=== PATIENT | male | born 1980 | race Caucasian/White ===

== ENCOUNTER 2016-12-30 13:51 | Observation (INO) | payer BC ==
[~2016-12-30] VITALS: Ht 175.3 cm; Wt 89.0 kg
[2016-12-30] MEDS ORDERED: SODIUM CHLORIDE 0.9% 1000ML 1,000 ML IV STA (14:17)
[2016-12-30] MEDS ORDERED: ASPIRIN 81 MG CHEW PO STA (14:17)
--- NOTE | 2016-12-30 14:28 | EMERGENCY ROOM VISIT NOTE ---
History Report prepared by Fernandez: Mili Oquendo Under the Supervision of: Dr. Reanna Pike M.D. First contact with patient: 14:07 Chief Complaint: NEURO SYMPTOMS Stated Complaint: BLURRINESS IN RIGHT EYE,HEADACHE,TROUBLE TALKING History of Present Illness The patient is a 36 year old male who presents to the Emergency Room with complaints of resolved neurologic symptoms beginning 3 hours ago. The patient states that he was at work today when it suddenly felt like a bright eye was flashed and his eye and he began having pain. He reports that he began to have blurry vision in his right eye and it was difficult to see. He notes that after 15 minutes he began to have a headache behind his right eye that progressed across his entire head and lasted about 2 hours. The patient states that he had difficulty focusing and concentrating on simple day-to-day tasks and they were much more difficult to complete. He reports that he tried to call his and let her know what was going on but he could not say what he wanted to and had some difficulty speaking. He reports that he had 30 minutes of the word salad and he denies any slurred speech during that time. The patient complains of some right neck soreness and notes that he was able to drive with extreme focus only. He denies any slurred speech, weakness of the arms or legs, difficulty walking, weight loss, frequent headaches, vomiting, leg swelling, and chest pain. He states that he does exercise regularly and sometimes get short of breath. The patient explains that his shortness of breath is only present with high levels of exertion. He notes that he also sometimes feel his heart beating irregularly when he is working out and when he has caffeine. He reports that 1 year ago he had similar symptoms with a headache and right eye blurriness that resolved after a shorter period of time than today. The patient rates his pain as a 4/10 in severity and states that earlier it was an 8/10. He states that his grandfather from heart attack in his 70s but he has no other cardiac history in his family. Source of History: patient Onset: 3 hours ago Position: other (neurological) Symptom Intensity: 4/10 Timing: resolved Associated Symptoms: + headache, No chest pain, No vomiting, No weakness Note: Pt complains of eye blurriness, eye pain, and difficulty speaking. He denies any slurred speech, difficulty walking, weight loss, frequent headaches, leg swelling. Review of Systems See HPI for pertinent positives & negatives. A total of 10 systems reviewed and were otherwise negative. Past Medical & Surgical Medical Problems: (1) Blurred vision (2) Headache (3) No significant past medical history Surgical Problems: (1) H/O inguinal hernia repair (2) History of vasectomy Family History FH: heart attack Social History Smoking Status: Never Smoker Marital Status: Housing Status: lives with significant other Occupation Status: employed Current/Historical Medications No Active Prescriptions or Reported Meds Allergies Coded Allergies: No Known Allergies (Unverified , 12/30/16) Physical Exam Vital Signs Date Time Temp Pulse Resp B/P (MAP) Pulse Ox O2 Delivery O2 Flow Rate FiO2 12/30/16 17:00 76 16 97 Room Air 12/30/16 15:06 90 16 153/92 94 Room Air 12/30/16 14:20 84 12/30/16 13:53 36.6 85 16 164/107 98 Room Air Physical Exam Vital signs reviewed. General: Well-appearing male, in no significant distress. HEENT: No scleral icterus, PERRLA, neck supple. Atraumatic. Cardiovascular: Regular rate and rhythm, no extra sounds. Pulmonary: Clear to auscultation bilaterally, normal work of breathing. Abdomen: Soft, nontender, nondistended, positive bowel sounds. Musculoskeletal: Atraumatic, no peripheral edema. Neurologic: Patient awake alert and oriented x 3, full strength in all 4 extremities. Cranial nerves 2 through 12 grossly intact. Skin: Warm, dry, no rash Medical Decision & Procedures ER Provider Diagnostic Interpretation: Radiology results as stated below per my review and radiologist interpretation: HEAD WITHOUT CONTRAST (CT) FINDINGS: No acute intracranial hemorrhage, midline shift, mass, large territorial ischemia or abnormal extra-axial collection. Focal 6 x 4 mm area of low attenuation within the region of the left lentiform nucleus suggest prominent perivascular space. The calvarium is intact. The paranasal sinuses, mastoid air cells, and middle ear cavities are clear. IMPRESSION: No acute intracranial abnormality. No intracranial hemorrhage or territorial ischemia. The above report was generated using voice recognition software. It may contain grammatical, syntax or spelling errors. Electronically signed by: Fritz Hartley M.D. 12/30/2016 2:43 PM Dictated Date/Time: 12/30/2016 2:41 PM CHEST ONE VIEW PORTABLE FINDINGS: Lung volumes are normal. Lungs are clear. No pneumothorax or pleural effusion is present. Cardiac size is normal. Mediastinal contours are normal. There is no evidence of pulmonary edema. IMPRESSION: No acute cardiopulmonary findings. Electronically signed by: Nasir Lee M.D. 12/30/2016 3:01 PM Dictated Date/Time: 12/30/2016 3:01 PM Laboratory Results Test 12/30/16 14:05 12/30/16 14:26 Estimated Average Glucose 105 mg/dl Hemoglobin A1c 5.3 % (4.5-5.6) Magnesium Level 2.1 mg/dl (1.8-2.4) Total Bilirubin 1.4 mg/dl (0.2-1) Direct Bilirubin 0.2 mg/dl (0-0.2) Aspartate Amino Transf (AST/SGOT) 25 U/L (15-37) Alanine Aminotransferase (ALT/SGPT) 48 U/L (12-78) Alkaline Phosphatase 101 U/L (45-117) Total Creatine Kinase 144 U/L (39-308) Creatine Kinase MB 1.0 ng/ml (0.5-3.6) Creatine Kinase MB Ratio 0.7 (0-3.0) Total Protein 7.7 gm/dl (6.4-8.2) Albumin 4.5 gm/dl (3.4-5.0) Thyroid Stimulating Hormone (TSH) 2.400 uIu/ml (0.300-4.500) Bedside Troponin I < 0.030 ng/ml (0-0.045) Laboratory results per my review. Medications Administered Medications (Trade) Dose Ordered Sig/Trisha Route Start Time Stop Time Status Last Admin Dose Admin Aspirin (Aspirin Chew) 324 mg NOW STAT PO 12/30/16 14:17 12/30/16 14:20 DC 12/30/16 15:01 324 MG Sodium Chloride 1,000 ml @ 150 mls/hr [id number] STAT IV 12/30/16 14:17 12/30/16 18:58 DC 12/30/16 15:01 150 MLS/HR ECG Indication: altered mental status Rate (beats per minute): 69 Rhythm: normal sinus Findings: no acute ischemic change, no ectopy ED Course 1408: Past medical records reviewed. The patient was evaluated in room B9. A complete history and physical examination was performed. 1417: Sodium Chloride 1000 ml @ 150 mls/hr IV, Aspirin Chew 324mg PO. 1641: I reevaluated and updated the patient. 1648: I reviewed the patient's case with Ann-Marie Williamson PA-C of [facility]. She will evaluate the patient for further management. 1657: Upon reevaluation, the patient is resting comfortably. I discussed laboratory and radiographic results with the patient. He verbalized agreement of the treatment plan. I spoke with Ann-Marie Williamson PA-C of the [facility] Hospitalist Service. The patient will be evaluated for further management and care. Medical Decision Differential diagnosis: Intracranial hemorrhage, stroke, intracranial mass, migraine headache, tension headache, sinusitis, meningitis This patient was evaluated and appeared to be in no significant distress. IV access was obtained and laboratory work was drawn. The patient was complaining of a low-grade headache at this point, visual changes had subsided. CT scan of the head was performed and is negative. Patient did receive some oral aspirin secondary to complaints of periodic chest pain, particularly with exertion. EKG reveals a sinus rhythm without acute ischemia. Patient's presentation is concerning for both the TIA like episode given his age. It does seem to be in line with a migraine headache however the speech changes are concerning. Patient's neurologic exam is completely intact on my assessment. The periodic shortness of breath and chest pain with palpitations is unclear. While he is likely having periodic PVCs, further cardiac evaluation may be warranted in light of the patient's headache and neurologic symptoms today. I did explain my findings to the patient. He agrees with the plan for hospitalist evaluation. Medication Reconcilliation Current Medication List: was personally reviewed by me Blood Pressure Screening Patient's blood pressure: Elevated blood pressure Blood pressure disposition: Elevated BP felt to be situational Consults Time Called: 1640 Consulting Physician: Ann-Marie Williamson PA-C - [facility] Returned Call: 1648 I reviewed the patient's case with Ann-Marie Williamson PA-C of [facility]. She will evaluate the patient for further management. Impression Primary Impression: TIA (transient ischemic attack) Additional Impression: Exertional chest pain Scribe Attestation The scribe's documentation has been prepared under my direction and personally reviewed by me in its entirety. I confirm that the note above accurately reflects all work, treatment, procedures, and medical decision making performed by me. Departure Information Dispostion Being Evaluated By Hospitalist Prescriptions No Active Prescriptions or Reported Meds Referrals Clarence Alvarez D.O. (PCP) Patient Instructions My [facility] Problem Qualifiers
[2016-12-30 14:30] LABS: BASO % 0.4 %; BASO ABS # 0.03 K/uL (0-0.2); COMPLETE YES; EOS % 0.6 %; HEMATOCRIT 48.2 % (42-52); IG% 0.1 %; LYMPH ABS # 2.87 K/uL (1.2-3.4); MEAN CELL VOLUME 88.4 fL (80-100); MEAN CORPUSCULAR HEMOGLOBIN 30.3 pg (25-34); MEAN CORPUSCULAR HGB CONC 34.2 g/dl (32-36); MEAN PLATELET VOLUME 11.2 fL (7.4-10.4); MONO % 8.1 %; NEUT % 50.8 %; PLATELET COUNT 188 K/uL (130-400); RED BLOOD COUNT 5.45 M/uL (4.7-6.1); WHITE BLOOD COUNT 7.18 K/uL (4.8-10.8)
--- NOTE | 2016-12-30 14:45 | DIAGNOSTIC IMAGING REPORT ---
HEAD WITHOUT CONTRAST (CT) CLINICAL HISTORY: 36 years-old Male with acute headache, difficulties speaking and blurred vision TECHNIQUE: Multiple axial CT images of the head were obtained without contrast. A dose lowering technique was utilized adhering to the principles of ALARA. CT DOSE: 537.48 mGy.cm COMPARISON: None. FINDINGS: No acute intracranial hemorrhage, midline shift, mass, large territorial ischemia or abnormal extra-axial collection. Focal 6 x 4 mm area of low attenuation within the region of the left lentiform nucleus suggest prominent perivascular space. The calvarium is intact. The paranasal sinuses, mastoid air cells, and middle ear cavities are clear. IMPRESSION: No acute intracranial abnormality. No intracranial hemorrhage or territorial ischemia. The above report was generated using voice recognition software. It may contain grammatical, syntax or spelling errors. Electronically signed by: Fritz Hartley M.D. 12/30/2016 2:43 PM Dictated Date/Time: 12/30/2016 2:41 PM
[2016-12-30 14:54] LABS: BUN/CREATININE RATIO 12.7 (10-20); CALCIUM 9.3 mg/dl (8.5-10.1); MAGNESIUM 2.1 mg/dl (1.8-2.4); POTASSIUM 3.8 mmol/L (3.5-5.1)
--- NOTE | 2016-12-30 15:02 | DIAGNOSTIC IMAGING REPORT ---
CHEST ONE VIEW PORTABLE CLINICAL HISTORY: Chest pain. Headache. Slurred speech. COMPARISON STUDY: No previous studies for comparison. FINDINGS: Lung volumes are normal. Lungs are clear. No pneumothorax or pleural effusion is present. Cardiac size is normal. Mediastinal contours are normal. There is no evidence of pulmonary edema. IMPRESSION: No acute cardiopulmonary findings. Electronically signed by: Nasir Lee M.D. 12/30/2016 3:01 PM Dictated Date/Time: 12/30/2016 3:01 PM
[2016-12-30 15:05] LABS: CKMB/CK RATIO 0.7 (0-3.0); THYROID STIMULATING HORMONE 2.4 uIu/ml (0.300-4.500)
[2016-12-30] MEDS ORDERED: ONDANSETRON INJ 2 MG/ML 2 ML VIAL IV PRN (17:45)
[2016-12-30] MEDS ORDERED: PHARMACIST DISCHARGE MED REC CONSULT PRN (17:45)
[2016-12-30] MEDS ORDERED: ACETAMINOPHEN 325 MG TAB PO PRN (17:45)
--- NOTE | 2016-12-30 18:23 | DIAGNOSTIC IMAGING REPORT ---
MRI OF THE BRAIN WITHOUT IV CONTRAST CLINICAL HISTORY: Headache. Trouble talking. Blurry vision. COMPARISON STUDY: CT of the brain dated 12/30/2016. TECHNIQUE: MRI of the brain was performed utilizing various T1 and T2-weighted sequences in the axial, sagittal, and coronal planes. IV contrast was not administered for this examination. FINDINGS: Brain parenchyma: There are 2 punctate foci of T2 signal abnormality within the right frontal white matter. This is of doubtful significance as an isolated finding. The brain parenchyma is otherwise normal in appearance. There is no hemorrhage or mass effect. There is no restricted diffusion to suggest acute ischemia. Mcghee-white matter differentiation is preserved. No extra-axial fluid collection is seen. The cerebellar tonsils are normal in configuration. Ventricles, sulci, and cisterns: Normal in configuration. Pituitary and sella: Unremarkable. Intracranial vasculature: Normal flow voids are maintained at the skull base. Orbits: The bony orbits are grossly intact. Orbital contents are normal in appearance. Sinuses and mastoids: Clear. Calvarium: Unremarkable. Cervical cord: Partially visualized cervical spinal cord is normal in morphology and signal intensity. IMPRESSION: No acute intracranial abnormality. Electronically signed by: Moe Valdez M.D. 12/30/2016 6:21 PM Dictated Date/Time: 12/30/2016 6:18 PM
[2016-12-30] MEDS ORDERED: IV FLUIDS COMPLETED PRN (18:30)
[2016-12-30 19:00] VITALS: BP 135/71; PULSE 73; TEMP 36.6; O2SAT 97
[2016-12-30 19:10] VITALS: O2SAT 97; Ht 175.3 cm; Wt 89.0 kg
[2016-12-30 19:28] LABS: INR 1.1 (0.9-1.1); PARTIAL THROMBOPLASTIN RATIO 1.2; PROTHROMBIN TIME (PATIENT) 11.3 SECONDS (9.0-12.0)
[2016-12-30] MEDS ORDERED: ENOXAPARIN 40 MG/0.4 ML SYR SC SCH (21:00)
[2016-12-30 21:11] VITALS: O2SAT 97
--- NOTE | 2016-12-30 21:51 | History and Physical ---
History & Physical Date & Time of Service: Dec 30, 2016 at 17:40 Chief Complaint: Blurriness In Right Eye,Headache,Trouble Talking Primary Care Physician: Clarence Alvarez D.O. History of Present Illness Source: patient, clinic records This is a 36 y/o male with no significant PMH who presents to the ED with blurry vision, HENDRIX, and speech difficulty. 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 The pain radiated around the back of his head to the left eye. He was having difficulty focusing. He called his and knew what he wanted to say, but was unable to get the correct words out. Was only able to say "I don't know" and "um". He reports associated mild nausea, lightheadedness and brief right neck soreness. Pt was brought to the ER by the pack room operator. Symptoms improved over a period of 2 hours- all are resolved except for headache which is now dull on the left sided rated 1-2/10. Pt ate his usual banana and V8 energy drink for breakfast. He reports a similar episode last year with vision change, speech difficulty, and HENDRIX which lasted 30 minutes. Pt was not evaluated for past episode. Pt also notes occasional L sided chest tightness (non-radiating) which occurs upon exertion (1 flight of stairs) with associated SUAREZ. He notes occasional palpitations at night associated w/ excess caffeine use or spicy food intake. Denies diaphoresis, fever, chills, URI symptoms, neck stiffness, weakness, numbness, balance difficulty, swallowing difficulty, syncope, vomiting, diarrhea, calf pain, edema. Pt denies hx of migraine, TIA, CVA, HTN, HL, DM, CAD, arrhythmia. Past Medical/Surgical History Medical Problems: (1) No significant past medical history Status: Chronic Surgical Problems: (1) H/O inguinal hernia repair Status: Chronic (2) History of vasectomy Status: Chronic Family History Diabetes mellitus GRANDFATHER GRANDMOTHER FH: heart attack GRANDFATHER ( of [place] in 70s) Hypertension GRANDFATHER GRANDMOTHER Social History Smoking Status: Never Smoker Alcohol Use: none Drug Use: none Marital Status: Housing status: lives with family Occupational Status: employed (mail delivery) Allergies Coded Allergies: No Known Allergies (Unverified , 12/30/16) Home Medications No Active Prescriptions or Reported Meds Review of Systems Ten systems reviewed and negative except as noted in HPI. Physical Exam Vital Signs Date Time Temp Pulse Resp B/P (MAP) Pulse Ox O2 Delivery O2 Flow Rate FiO2 12/30/16 17:00 76 16 97 Room Air 12/30/16 15:06 90 16 153/92 94 Room Air 12/30/16 14:20 84 12/30/16 13:53 36.6 85 16 164/107 98 Room Air General Appearance: WD/WN, no apparent distress Head: normocephalic, atraumatic Eyes: normal inspection, PERRL, EOMI, sclerae normal, + pertinent finding ( vision intact 20/20 bilaterally on pocket vision chart testing) ENT: hearing grossly normal, pharynx normal Neck: no adenopathy, trachea midline Respiratory/Chest: lungs clear, normal breath sounds, no respiratory distress Cardiovascular: regular rate, rhythm, no murmur Abdomen/GI: normal bowel sounds, non tender, soft Extremities/Musculoskelatal: normal inspection, no calf tenderness, no pedal edema 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 finger to nose intact bilaterally.) Skin: normal color, warm/dry Diagnostics Laboratory Results Results Past 24 Hours Test 12/30/16 14:05 12/30/16 14:26 Range/Units White Blood Count 7.18 4.8-10.8 K/uL Red Blood Count 5.45 4.7-6.1 M/uL Hemoglobin 16.5 14.0-18.0 g/dL Hematocrit 48.2 42-52 % Mean Corpuscular Volume 88.4 80-100 fL Mean Corpuscular Hemoglobin 30.3 25-34 pg Mean Corpuscular Hemoglobin Concent 34.2 32-36 g/dl Platelet Count 188 130-400 K/uL Mean Platelet Volume 11.2 7.4-10.4 fL Neutrophils (%) (Auto) 50.8 % Lymphocytes (%) (Auto) 40.0 % Monocytes (%) (Auto) 8.1 % Eosinophils (%) (Auto) 0.6 % Basophils (%) (Auto) 0.4 % Neutrophils # (Auto) 3.65 1.4-6.5 K/uL Lymphocytes # (Auto) 2.87 1.2-3.4 K/uL Monocytes # (Auto) 0.58 0.11-0.59 K/uL Eosinophils # (Auto) 0.04 0-0.5 K/uL Basophils # (Auto) 0.03 0-0.2 K/uL RDW Standard Deviation 42.0 36.4-46.3 fL RDW Coefficient of Variation 13.0 11.5-14.5 % Immature Granulocyte % (Auto) 0.1 % Immature Granulocyte # (Auto) 0.01 0.00-0.02 K/uL Sodium Level 141 136-145 mmol/L Potassium Level 3.8 3.5-5.1 mmol/L Chloride Level 107 98-107 mmol/L Carbon Dioxide Level 27 21-32 mmol/L Anion Gap 7.0 3-11 mmol/L Blood Urea Nitrogen 13 7-18 mg/dl Creatinine 1.00 0.60-1.40 mg/dl Est Creatinine Clear Calc Drug Dose 114.6 ml/min Estimated GFR () 111.7 Estimated GFR (Non- 96.4 BUN/Creatinine Ratio 12.7 10-20 Random Glucose 89 70-99 mg/dl Calcium Level 9.3 8.5-10.1 mg/dl Magnesium Level 2.1 1.8-2.4 mg/dl Total Bilirubin 1.4 0.2-1 mg/dl Direct Bilirubin 0.2 0-0.2 mg/dl Aspartate Amino Transf (AST/SGOT) 25 15-37 U/L Alanine Aminotransferase (ALT/SGPT) 48 12-78 U/L Alkaline Phosphatase 101 45-117 U/L Total Creatine Kinase 144 39-308 U/L Creatine Kinase MB 1.0 0.5-3.6 ng/ml Creatine Kinase MB Ratio 0.7 0-3.0 Total Protein 7.7 6.4-8.2 gm/dl Albumin 4.5 3.4-5.0 gm/dl Thyroid Stimulating Hormone (TSH) 2.400 0.300-4.500 uIu/ml Bedside Troponin I < 0.030 0-0.045 ng/ml Diagnostic Radiology HEAD WITHOUT CONTRAST (CT)- per radiology IMPRESSION: No acute intracranial abnormality. No intracranial hemorrhage or territorial ischemia. CHEST ONE VIEW PORTABLE- per radiology IMPRESSION: No acute cardiopulmonary findings. MRI OF THE BRAIN WITHOUT IV CONTRAST IMPRESSION: No acute intracranial abnormality. EKG NSR, nonspecific T wave abnormality in III, no ST changes Impression Assessment and Plan HEADACHE/ STROKE LIKE SYMPTOMS With R eye blurred vision, difficulty concentrating, and word finding difficulty - all resolved Likely secondary to migraine No risk factors for CVA CT head- negative; MRI brain- negative, echo-pending Reports of occasional palpitations- NSR on EKG; telemetry monitoring to r/o arrhythmia Neuro checks ELEVATED BP Resolved Likely situational No hx of hypertension EXERTIONAL CHEST PAIN Occurs occasionally with 1 flight of stairs No acute symptoms; no significant risk factors (no HTN, HL, or DM, nonsmoker, no FHx of premature CAD) EKG- nonspec T wave abnml in III, no ST changes Check echo Consider stress test as outpatient DVT PROPHYLAXIS Lovenox SQ FULL CODE DISPOSITION Observation to telemetry Follows with Dr. Clarence Alvarez for primary care Patient seen in collaboration with Dr. Matos. Please see his addendum. Attending Addendum Pt was seen and examined. Agreed with Ann-Marie BOWERS physical exam, assessment and plan. 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 He said that he had similar problem a year ago.Symptoms resolved now. Denies any chest pain, palpitation, dizziness, sob, weakness and numbness. General- No acute distress Head- atraumatic Eyes- PERRL, EOMI ENT- oropharynx clear Neck- supple, no JVD Lungs- clear to auscultation Heart- regular rhythm Abdomen- normal bowel sounds, soft Extremities- no pretibial edema, no calf tenderness Neuro- alert, oriented x 3; PERRL, EOMI; no facial palsy; no dysarthria; motor 5 /5 bilaterally Skin- warm & dry A/P STROKE LIKE SYMPTOMS ASSOCIATED WITH HEADACHE Likely secondary to migraine No focal neuro deficit on exam No risk factors for CVA CT head- negative; MRI brain- negative Check echo Continue monitor in tele Neuro check Lab, EKG, imaging reviewed Please refer to Ann-Marie PA-C documentation for other problems. Gumaro Matos MD VTE Prophylaxis VTE Risk Assessment Done? Y/N: Yes Risk Level: Moderate
[2016-12-30 23:33] VITALS: BP 116/74; PULSE 63; TEMP 36.3; O2SAT 97
[2016-12-31] VITALS (7 sets, daily range): BP systolic 102–131; BP diastolic 69–93; PULSE 57–72; TEMP 36.4–36.9; O2SAT 95–98
[2016-12-31 06:16] LABS: ESTIMATED AVERAGE GLUCOSE 105 mg/dl; HA1C FLAG Normal (Normal)
[2016-12-31 06:52] LABS: BASO % 0.3 %; BASO ABS # 0.02 K/uL (0-0.2); COMPLETE YES; EOS % 1.9 %; HEMATOCRIT 45.2 % (42-52); LYMPH % 37.8 %; LYMPH ABS # 2.35 K/uL (1.2-3.4); MEAN CELL VOLUME 88.1 fL (80-100); MEAN CORPUSCULAR HGB CONC 34.1 g/dl (32-36); MEAN PLATELET VOLUME 10.6 fL (7.4-10.4); MONO % 7.6 %; NEUT % 52.4 %; PLATELET COUNT 168 K/uL (130-400); RED BLOOD COUNT 5.13 M/uL (4.7-6.1); WHITE BLOOD COUNT 6.22 K/uL (4.8-10.8)
[2016-12-31 07:22] LABS: BUN/CREATININE RATIO 10.6 (10-20); CALCIUM 8.9 mg/dl (8.5-10.1); POTASSIUM 4.2 mmol/L (3.5-5.1)
[2016-12-31 07:25] LABS: CHOLESTEROL/HDL RATIO 4.6
[2016-12-31] MEDS ORDERED: ASPIRIN 81 MG ECTAB PO SCH (09:00)
--- NOTE | 2016-12-31 09:50 | ECHOCARDIOGRAM REPORT ---
*NOTICE TO RECEIVING LIBERTARIAN AGENCY This information is strictly Confidential and protected under [place] law. [place] law prohibits you from making any further disclosure of this information unless further disclosure is expressly permitted by the written consent of the person to whom it pertains or is authorized by law. A general authorization for the release of medical or other information is not sufficient for this purpose. Hospital accepts no responsibility if the information is made available to any other person, INCLUDING THE PATIENT. Interpretation Summary * Name: FORREST BRIAN Study Date: 12/31/2016 08:04 AM BP: 113/75 mmHg * Patient Location: .ED HR: 86 * : 1980 (M/d/yyyy) Gender: Male Height: 69 in * Age: 36 yrs Ethnicity: CA Weight: 203 lb * Ordering Physician: Ann-Marie Williamson * Referring Physician: Self, Referred * Performed By: Justin Tucker RCS * * Reason For Study: Stroke like symptoms, exertional Chest pain * BSA: 2.1 m2 * -- Conclusions -- * The left ventricle is normal in size. * There is normal left ventricular wall thickness. * The left ventricular wall motion is normal. * Left ventricular systolic function is normal. * Ejection Fraction = 60-65%. * No valvular abnormalities. * The interatrial septum is intact with no evidence for an atrial septal defect. * Injection of contrast documented no interatrial shunt. Procedure Details * A saline contrast injection was performed to assess for cardiac shunting. * The injection was performed through an intravenous line in the right arm. * The attending nurse who injected the saline contrast was Kelsi Oliveira RN. * A total of 18 cc of agitated saline was given. * A complete two-dimensional transthoracic echocardiogram was performed (2D, M-mode, Doppler and color flow Doppler). Left Ventricle * The left ventricle is normal in size. * There is normal left ventricular wall thickness. * Ejection Fraction = 60-65%. * Left ventricular systolic function is normal. * The left ventricular wall motion is normal. Right Ventricle * The right ventricle is normal in size and function. Atria * The left atrial size is normal. * Right atrial size is normal. * The interatrial septum is intact with no evidence for an atrial septal defect. * Injection of contrast documented no interatrial shunt. Mitral Valve * The mitral valve is normal. * There is no mitral valve stenosis. * There is trace mitral regurgitation. Tricuspid Valve * The tricuspid valve is normal. * There is no tricuspid stenosis. * There is trace tricuspid regurgitation. Aortic Valve * The aortic valve is trileaflet. * No hemodynamically significant valvular aortic stenosis. * No aortic regurgitation is present. Pulmonic Valve * The pulmonic valve is not well visualized. Great Vessels * The aortic root is normal size. Pericardium/Pleural * There is no pericardial effusion. Great Vessels * Normal inferior vena cava diameter and respiratory variation suggests normal central venous pressure. MMode 2D Measurements and Calculations IVSd 0.88 cm LVIDd 5.2 cm LVIDs 3.3 cm LVPWd 0.84 cm IVS/LVPW 1.0 FS 36.8 % EDV(Teich) 128.7 ml ESV(Teich) 43.5 ml EF(Teich) 66.2 % EDV(cubed) 139.5 ml ESV(cubed) 35.3 ml EF(cubed) 74.7 % LV mass(C)d 159.6 grams LV mass(C)dI 76.8 grams/m\S\2 SV(Teich) 85.2 ml SI(Teich) 41.0 ml/m\S\2 SV(cubed) 104.2 ml SI(cubed) 50.1 ml/m\S\2 Ao root diam 3.0 cm Ao root area 7.1 cm\S\2 LVOT diam 2.1 cm LVOT area 3.6 cm\S\2 EDV(MOD-sp4) 86.1 ml ESV(MOD-sp4) 26.2 ml EF(MOD-sp4) 69.6 % EDV(MOD-sp2) 66.5 ml ESV(MOD-sp2) 22.9 ml EF(MOD-sp2) 65.6 % SV(MOD-sp4) 59.9 ml SI(MOD-sp4) 28.8 ml/m\S\2 SV(MOD-sp2) 43.6 ml SI(MOD-sp2) 21.0 ml/m\S\2 Doppler Measurements and Calculations MV E max saul 70.1 cm/sec MV A max saul 44.2 cm/sec MV E/A 1.6 MV dec time 0.25 sec Ao V2 max 110.7 cm/sec Ao max PG 4.9 mmHg Ao max PG (full) 3.1 mmHg CATHRYN(V,A) 2.2 cm\S\2 CATHRYN(V,D) 2.2 cm\S\2 LV V1 max PG 1.8 mmHg LV V1 max 67.4 cm/sec TR max saul 226.2 cm/sec
--- NOTE | 2016-12-31 13:46 | Progress Note ---
Internal Med Progress Note Date of Service: Dec 31, 2016. Provider Documentation: SUBJECTIVE: The patient was seen and examined No more episodes of neurologic symptoms Minimal headache over the left side OBJECTIVE: Vital Signs-as noted below Exam: General-no distress at rest Eyes-Normal ENT-normal Neck-supple Lungs-clear to ausucltate bilaterally Heart-Regular Abdomen-Benign,no masses,bowel sound present Extremities-No edema Neuro-AAOx3 Lab data as noted below. ASSESSMENT & PLAN: HEADACHE/ STROKE LIKE SYMPTOMS Presented With R eye blurred vision, difficulty concentrating, and word finding difficulty- all resolved now Likely secondary to migraine No risk factors for CVA CT head- negative; MRI brain- negative, ECHO- The left ventricle is normal in size. * There is normal left ventricular wall thickness. * The left ventricular wall motion is normal. * Left ventricular systolic function is normal. * Ejection Fraction = 60-65%. * No valvular abnormalities. * The interatrial septum is intact with no evidence for an atrial septal defect. * Injection of contrast documented no interatrial shunt. No Arrhythmia noted in Tele Clinically better Await Neurology evaluation Likely discharge this afternoon ELEVATED BP Resolved Likely situational No hx of hypertension Remains normal EXERTIONAL CHEST PAIN Occurs occasionally with 1 flight of stairs No acute symptoms; no significant risk factors (no HTN, HL, or DM, nonsmoker, no FHx of premature CAD) EKG- nonspec T wave abnml in III, no ST changes Check echo as above Consider stress test as outpatient DVT PROPHYLAXIS Lovenox SQ FULL CODE DISPOSITION Observation to telemetry Follows with Dr. Clarence Alvarez for primary care Likely discharge this afternoon Vital Signs: Date Time Temp Pulse Resp B/P (MAP) Pulse Ox O2 Delivery O2 Flow Rate FiO2 12/31/16 12:00 Room Air 12/31/16 10:57 36.8 63 18 117/75 (89) 95 Room Air 12/31/16 08:00 Room Air 12/31/16 07:56 36.5 57 18 113/75 (88) 98 Room Air 12/31/16 04:00 Room Air 12/31/16 03:40 36.4 62 18 102/69 (80) 98 Room Air 12/30/16 23:59 Room Air 12/30/16 23:33 36.3 63 18 116/74 (88) 97 Room Air 12/30/16 21:11 97 Room Air 12/30/16 19:10 97 Room Air 12/30/16 19:00 36.6 73 16 135/71 (92) 97 Room Air 12/30/16 18:36 73 16 160/85 96 12/30/16 17:49 73 16 160/85 96 Room Air 12/30/16 17:00 76 16 97 Room Air 12/30/16 15:06 90 16 153/92 94 Room Air 12/30/16 14:20 84 12/30/16 13:53 36.6 85 16 164/107 98 Room Air Lab Results: Results Past 24 Hours Test 12/30/16 14:05 12/30/16 14:26 12/30/16 19:05 12/31/16 06:36 Range/Units White Blood Count 7.18 6.22 4.8-10.8 K/uL Red Blood Count 5.45 5.13 4.7-6.1 M/uL Hemoglobin 16.5 15.4 14.0-18.0 g/dL Hematocrit 48.2 45.2 42-52 % Mean Corpuscular Volume 88.4 88.1 80-100 fL Mean Corpuscular Hemoglobin 30.3 30.0 25-34 pg Mean Corpuscular Hemoglobin Concent 34.2 34.1 32-36 g/dl Platelet Count 188 168 130-400 K/uL Mean Platelet Volume 11.2 10.6 7.4-10.4 fL Neutrophils (%) (Auto) 50.8 52.4 % Lymphocytes (%) (Auto) 40.0 37.8 % Monocytes (%) (Auto) 8.1 7.6 % Eosinophils (%) (Auto) 0.6 1.9 % Basophils (%) (Auto) 0.4 0.3 % Neutrophils # (Auto) 3.65 3.26 1.4-6.5 K/uL Lymphocytes # (Auto) 2.87 2.35 1.2-3.4 K/uL Monocytes # (Auto) 0.58 0.47 0.11-0.59 K/uL Eosinophils # (Auto) 0.04 0.12 0-0.5 K/uL Basophils # (Auto) 0.03 0.02 0-0.2 K/uL RDW Standard Deviation 42.0 42.3 36.4-46.3 fL RDW Coefficient of Variation 13.0 13.1 11.5-14.5 % Immature Granulocyte % (Auto) 0.1 0.0 % Immature Granulocyte # (Auto) 0.01 0.00 0.00-0.02 K/uL Sodium Level 141 143 136-145 mmol/L Potassium Level 3.8 4.2 3.5-5.1 mmol/L Chloride Level 107 109 98-107 mmol/L Carbon Dioxide Level 27 28 21-32 mmol/L Anion Gap 7.0 6.0 3-11 mmol/L Blood Urea Nitrogen 13 11 7-18 mg/dl Creatinine 1.00 1.00 0.60-1.40 mg/dl Est Creatinine Clear Calc Drug Dose 114.6 112.7 ml/min Estimated GFR () 111.7 111.7 Estimated GFR (Non- 96.4 96.4 BUN/Creatinine Ratio 12.7 10.6 10-20 Random Glucose 89 93 70-99 mg/dl Estimated Average Glucose 105 mg/dl Hemoglobin A1c 5.3 4.5-5.6 % Calcium Level 9.3 8.9 8.5-10.1 mg/dl Magnesium Level 2.1 1.8-2.4 mg/dl Total Bilirubin 1.4 0.2-1 mg/dl Direct Bilirubin 0.2 0-0.2 mg/dl Aspartate Amino Transf (AST/SGOT) 25 15-37 U/L Alanine Aminotransferase (ALT/SGPT) 48 12-78 U/L Alkaline Phosphatase 101 45-117 U/L Total Creatine Kinase 144 39-308 U/L Creatine Kinase MB 1.0 0.5-3.6 ng/ml Creatine Kinase MB Ratio 0.7 0-3.0 Total Protein 7.7 6.4-8.2 gm/dl Albumin 4.5 3.4-5.0 gm/dl Thyroid Stimulating Hormone (TSH) 2.400 0.300-4.500 uIu/ml Bedside Troponin I < 0.030 0-0.045 ng/ml Prothrombin Time 11.3 9.0-12.0 SECONDS Prothromb Time International Ratio 1.1 0.9-1.1 Activated Partial Thromboplast Time 30.9 21.0-31.0 SECONDS Partial Thromboplastin Ratio 1.2 Triglycerides Level 171 0-150 mg/dl Cholesterol Level 169 0-200 mg/dl HDL Cholesterol 37 mg/dl LDL Cholesterol, Calculated 98 mg/dl VLDL Cholesterol, Calculated 34 mg/dl Cholesterol/HDL Ratio 4.6
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
--- NOTE | 2016-12-31 18:12 | DIAGNOSTIC IMAGING REPORT ---
CAROTID DOPPLER NECK ART CLINICAL HISTORY: 36 years-old Male presenting with r/o stenosis. TECHNIQUE: Real-time grayscale and color and spectral Doppler ultrasound imaging of the bilateral carotid arteries was performed. NASCET criteria was used in evaluating this study. COMPARISON: None. FINDINGS: Right: Common carotid: Patent. Peak systolic velocity 83 cm/s. Internal carotid artery: Patent. Peak systolic velocity 77 cm/s. External carotid artery: Patent. Peak systolic velocity 99 cm/s. Systolic ratio: 0.93. Left: Common carotid: Patent. Peak systolic velocity 122 cm/s. Internal carotid artery: Patent. Peak systolic velocity 67 cm/s. External carotid artery: Patent. Peak systolic velocity 86 cm/s. Systolic ratio: 0.55. Bilateral antegrade flow within the vertebral arteries. Reference ranges: Normal ICA peak systolic velocity less than 125 cm/s. Normal ICA peak systolic velocity to common carotid artery velocity ratio is less than 2: less than 2 equates to less than 50% stenosis, 2-4 equates to 50-69% stenosis, greater than 4 equates to greater than or equal to 70% stenosis. Normal ICA end-diastolic velocity less than 40. Blood pressure Brachial: Right: 155/77 mmHg, Left: 147/84 mmHg. IMPRESSION: No hemodynamically significant stenosis seen within the carotid arteries. Electronically signed by: Pollo Lee M.D. 12/31/2016 6:11 PM Dictated Date/Time: 12/31/2016 6:09 PM
--- NOTE | 2016-12-31 18:36 | Discharge Instructions ---
Discharge Instructions Date of Service Dec 31, 2016. Admission Reason for Admission: Blurred Vision, Headache Discharge Discharge Diagnosis / Problem: Stroke Like symptoms-resolved,Probable Migraine Discharge Goals Goal(s): Prevent Disease Progression Activity Recommendations Activity Limitations: resume your previous activity . Instructions / Follow-Up Instructions / Follow-Up Dr Alvarez on 01/07/17 at 1:45 PM.Will need a referral to [facility] Current Hospital Diet Patient's current hospital diet: AHA Diet (Heart Healthy) Discharge Diet Recommended Diet: Regular Diet, AHA Diet (Heart Healthy) Pending Studies Studies pending at discharge: no Laboratory Results Hemoglobin A1c Test 12/30/16 14:05 Range/Units Estimated Average Glucose 105 mg/dl Hemoglobin A1c 5.3 4.5-5.6 % Lipid Panel Test 12/31/16 06:36 Range/Units Triglycerides Level 171 H 0-150 mg/dl Cholesterol Level 169 0-200 mg/dl HDL Cholesterol 37 mg/dl Cholesterol/HDL Ratio 4.6 LDL Cholesterol, Calculated 98 mg/dl Medical Emergencies . Who to Call and When: Medical Emergencies: If at any time you feel your situation is an emergency, please call 911 immediately. . Non-Emergent Contact Non-Emergency issues call your: Primary Care Provider . Past History Medical & Surgical History: (1) Blurred vision (2) Headache (3) TIA (transient ischemic attack) (4) H/O inguinal hernia repair (5) History of vasectomy . "Provider Documentation" section prepared by Mac Archer. . VTE Core Measure Inpt VTE Proph given/why not?: Enoxaparin (Lovenox)SQ
--- NOTE | 2017-01-01 14:16 | Discharge Summary ---
Discharge Summary Date of Service Jan 01, 2017. Discharge Summary Admission Date: Dec 30, 2016 at 17:31 Discharge Date: Dec 31, 2016 Discharge Disposition: Home Principal Diagnosis: Stroke Like symptoms-resolved,Probable Migraine Secondary Diagnoses/Problems: Please see H&P and Hospital Progress note Consultations: Neurology Medication Reconciliation Medication Profile: No Active Prescriptions or Reported Meds Admission Information HPI (per Admitting provider): This is a 36 y/o male with no significant PMH who presents to the ED with blurry vision, HENDRIX, and speech difficulty. 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 The pain radiated around the back of his head to the left eye. He was having difficulty focusing. He called his and knew what he wanted to say, but was unable to get the correct words out. Was only able to say "I don't know" and "um". He reports associated mild nausea, lightheadedness and brief right neck soreness. Pt was brought to the ER by the business management analyst. Symptoms improved over a period of 2 hours- all are resolved except for headache which is now dull on the left sided rated 1-2/10. Pt ate his usual banana and V8 energy drink for breakfast. He reports a similar episode last year with vision change, speech difficulty, and HENDRIX which lasted 30 minutes. Pt was not evaluated for past episode. Pt also notes occasional L sided chest tightness (non-radiating) which occurs upon exertion (1 flight of stairs) with associated SUAREZ. He notes occasional palpitations at night associated w/ excess caffeine use or spicy food intake. Denies diaphoresis, fever, chills, URI symptoms, neck stiffness, weakness, numbness, balance difficulty, swallowing difficulty, syncope, vomiting, diarrhea, calf pain, edema. Pt denies hx of migraine, TIA, CVA, HTN, HL, DM, CAD, arrhythmia. Past Medical/Surgical History Medical Problems: (1) No significant past medical history Status: Chronic Surgical Problems: (1) H/O inguinal hernia repair Status: Chronic (2) History of vasectomy Status: Chronic Family History Diabetes mellitus GRANDFATHER GRANDMOTHER FH: heart attack GRANDFATHER ( of [place] in 70s) Hypertension GRANDFATHER GRANDMOTHER Social History Smoking Status: Never Smoker Alcohol Use: none Drug Use: none Marital Status: Housing status: lives with family Occupational Status: employed (mail delivery) Allergies Coded Allergies: No Known Allergies (Unverified , 12/30/16) Home Medications No Active Prescriptions or Reported Meds Review of Systems Ten systems reviewed and negative except as noted in HPI. Physical Ex - H&P Physical Exam Vital Signs Date Time Temp Pulse Resp B/P (MAP) Pulse Ox O2 Delivery O2 Flow Rate FiO2 12/30/16 17:00 76 16 97 Room Air 12/30/16 15:06 90 16 153/92 94 Room Air 12/30/16 14:20 84 12/30/16 13:53 36.6 85 16 164/107 98 Room Air General Appearance: WD/WN, no apparent distress Head: normocephalic, atraumatic Eyes: normal inspection, PERRL, EOMI, sclerae normal, + pertinent finding ( vision intact 20/20 bilaterally on pocket vision chart testing) ENT: hearing grossly normal, pharynx normal Neck: no adenopathy, trachea midline Respiratory/Chest: lungs clear, normal breath sounds, no respiratory distress Cardiovascular: regular rate, rhythm, no murmur Abdomen/GI: normal bowel sounds, non tender, soft Extremities/Musculoskelatal: normal inspection, no calf tenderness, no pedal edema Neurologic/Psych: chute loader II-XII nml as tested, no motor/sensory deficits, alert, normal mood/affect, oriented x 3, + pertinent finding (no pronator drift. finger to nose intact bilaterally.) Skin: normal color, warm/dry Diagnostics - H&P Diagnostics Laboratory Results Results Past 24 Hours Test 12/30/16 14:05 12/30/16 14:26 Range/Units White Blood Count 7.18 4.8-10.8 K/uL Red Blood Count 5.45 4.7-6.1 M/uL Hemoglobin 16.5 14.0-18.0 g/dL Hematocrit 48.2 42-52 % Mean Corpuscular Volume 88.4 80-100 fL Mean Corpuscular Hemoglobin 30.3 25-34 pg Mean Corpuscular Hemoglobin Concent 34.2 32-36 g/dl Platelet Count 188 130-400 K/uL Mean Platelet Volume 11.2 7.4-10.4 fL Neutrophils (%) (Auto) 50.8 % Lymphocytes (%) (Auto) 40.0 % Monocytes (%) (Auto) 8.1 % Eosinophils (%) (Auto) 0.6 % Basophils (%) (Auto) 0.4 % Neutrophils # (Auto) 3.65 1.4-6.5 K/uL Lymphocytes # (Auto) 2.87 1.2-3.4 K/uL Monocytes # (Auto) 0.58 0.11-0.59 K/uL Eosinophils # (Auto) 0.04 0-0.5 K/uL Basophils # (Auto) 0.03 0-0.2 K/uL RDW Standard Deviation 42.0 36.4-46.3 fL RDW Coefficient of Variation 13.0 11.5-14.5 % Immature Granulocyte % (Auto) 0.1 % Immature Granulocyte # (Auto) 0.01 0.00-0.02 K/uL Sodium Level 141 136-145 mmol/L Potassium Level 3.8 3.5-5.1 mmol/L Chloride Level 107 98-107 mmol/L Carbon Dioxide Level 27 21-32 mmol/L Anion Gap 7.0 3-11 mmol/L Blood Urea Nitrogen 13 7-18 mg/dl Creatinine 1.00 0.60-1.40 mg/dl Est Creatinine Clear Calc Drug Dose 114.6 ml/min Estimated GFR () 111.7 Estimated GFR (Non- 96.4 BUN/Creatinine Ratio 12.7 10-20 Random Glucose 89 70-99 mg/dl Calcium Level 9.3 8.5-10.1 mg/dl Magnesium Level 2.1 1.8-2.4 mg/dl Total Bilirubin 1.4 0.2-1 mg/dl Direct Bilirubin 0.2 0-0.2 mg/dl Aspartate Amino Transf (AST/SGOT) 25 15-37 U/L Alanine Aminotransferase (ALT/SGPT) 48 12-78 U/L Alkaline Phosphatase 101 45-117 U/L Total Creatine Kinase 144 39-308 U/L Creatine Kinase MB 1.0 0.5-3.6 ng/ml Creatine Kinase MB Ratio 0.7 0-3.0 Total Protein 7.7 6.4-8.2 gm/dl Albumin 4.5 3.4-5.0 gm/dl Thyroid Stimulating Hormone (TSH) 2.400 0.300-4.500 uIu/ml Bedside Troponin I < 0.030 0-0.045 ng/ml Diagnostic Radiology HEAD WITHOUT CONTRAST (CT)- per radiology IMPRESSION: No acute intracranial abnormality. No intracranial hemorrhage or territorial ischemia. CHEST ONE VIEW PORTABLE- per radiology IMPRESSION: No acute cardiopulmonary findings. MRI OF THE BRAIN WITHOUT IV CONTRAST IMPRESSION: No acute intracranial abnormality. EKG NSR, nonspecific T wave abnormality in III, no ST changes Impression - H&P Impression Assessment and Plan HEADACHE/ STROKE LIKE SYMPTOMS With R eye blurred vision, difficulty concentrating, and word finding difficulty - all resolved Likely secondary to migraine No risk factors for CVA CT head- negative; MRI brain- negative, echo-pending Reports of occasional palpitations- NSR on EKG; telemetry monitoring to r/o arrhythmia Neuro checks ELEVATED BP Resolved Likely situational No hx of hypertension EXERTIONAL CHEST PAIN Occurs occasionally with 1 flight of stairs No acute symptoms; no significant risk factors (no HTN, HL, or DM, nonsmoker, no FHx of premature CAD) EKG- nonspec T wave abnml in III, no ST changes Check echo Consider stress test as outpatient DVT PROPHYLAXIS Lovenox SQ FULL CODE DISPOSITION Observation to telemetry Follows with Dr. Clarence Alvarez for primary care Patient seen in collaboration with Dr. Matos. Please see his addendum. Attending Addendum Pt was seen and examined. Agreed with Ann-Marie BOWERS physical exam, assessment and plan. 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 He said that he had similar problem a year ago.Symptoms resolved now. Denies any chest pain, palpitation, dizziness, sob, weakness and numbness. General- No acute distress Head- atraumatic Eyes- PERRL, EOMI ENT- oropharynx clear Neck- supple, no JVD Lungs- clear to auscultation Heart- regular rhythm Abdomen- normal bowel sounds, soft Extremities- no pretibial edema, no calf tenderness Neuro- alert, oriented x 3; PERRL, EOMI; no facial palsy; no dysarthria; motor 5 /5 bilaterally Skin- warm & dry A/P STROKE LIKE SYMPTOMS ASSOCIATED WITH HEADACHE Likely secondary to migraine No focal neuro deficit on exam No risk factors for CVA CT head- negative; MRI brain- negative Check echo Continue monitor in tele Neuro check Lab, EKG, imaging reviewed Please refer to Ann-Marie BOWERS documentation for other problems. Gumaro Matos MD VTE Prophylaxis VTE Risk Assessment Done? Y/N: Yes Risk Level: Moderate Physical Exam (per Admitting): General Appearance: WD/WN, no apparent distress Head: normocephalic, atraumatic Eyes: normal inspection, PERRL, EOMI, sclerae normal, + pertinent finding ( vision intact 20/20 bilaterally on pocket vision chart testing) ENT: hearing grossly normal, pharynx normal Neck: no adenopathy, trachea midline Respiratory/Chest: lungs clear, normal breath sounds, no respiratory distress Cardiovascular: regular rate, rhythm, no murmur Abdomen/GI: normal bowel sounds, non tender, soft Extremities/Musculoskelatal: normal inspection, no calf tenderness, no pedal edema Neurologic/Psych: chute loader II-XII nml as tested, no motor/sensory deficits, alert , normal mood/affect, oriented x 3, + pertinent finding (no pronator drift. finger to nose intact bilaterally.) Skin: normal color, warm/dry Hospital Course HEADACHE/ STROKE LIKE SYMPTOMS Presented With R eye blurred vision, difficulty concentrating, and word finding difficulty- all resolved now Likely secondary to migraine No risk factors for CVA CT head- negative; MRI brain- negative, ECHO- The left ventricle is normal in size. * There is normal left ventricular wall thickness. * The left ventricular wall motion is normal. * Left ventricular systolic function is normal. * Ejection Fraction = 60-65%. * No valvular abnormalities. * The interatrial septum is intact with no evidence for an atrial septal defect. * Injection of contrast documented no interatrial shunt. No Arrhythmia noted in Tele Clinically better Await Neurology evaluation Likely discharge this afternoon ELEVATED BP Resolved Likely situational No hx of hypertension Remains normal EXERTIONAL CHEST PAIN Occurs occasionally with 1 flight of stairs No acute symptoms; no significant risk factors (no HTN, HL, or DM, nonsmoker, no FHx of premature CAD) EKG- nonspec T wave abnml in III, no ST changes Check echo as above Consider stress test as outpatient DVT PROPHYLAXIS Lovenox SQ FULL CODE DISPOSITION Observation to telemetry Follows with Dr. Clarence Alvarez for primary care Likely discharge this afternoon Total time spent on discharge =35 minutes This includes examination of the patient, discharge planning, medication reconciliation, and communication with other providers. Discharge Instructions Date of Service Dec 31, 2016. Admission Reason for Admission: Blurred Vision, Headache Discharge Discharge Diagnosis / Problem: Stroke Like symptoms-resolved,Probable Migraine Discharge Goals Goal(s): Prevent Disease Progression Activity Recommendations Activity Limitations: resume your previous activity . Instructions / Follow-Up Instructions / Follow-Up Dr Alvarez on 01/07/17 at 1:45 PM.Will need a referral to [facility] Current Hospital Diet Patient's current hospital diet: AHA Diet (Heart Healthy) Discharge Diet Recommended Diet: Regular Diet, AHA Diet (Heart Healthy) Pending Studies Studies pending at discharge: no Laboratory Results Hemoglobin A1c Test 12/30/16 14:05 Range/Units Estimated Average Glucose 105 mg/dl Hemoglobin A1c 5.3 4.5-5.6 % Lipid Panel Test 12/31/16 06:36 Range/Units Triglycerides Level 171 H 0-150 mg/dl Cholesterol Level 169 0-200 mg/dl HDL Cholesterol 37 mg/dl Cholesterol/HDL Ratio 4.6 LDL Cholesterol, Calculated 98 mg/dl Medical Emergencies . Who to Call and When: Medical Emergencies: If at any time you feel your situation is an emergency, please call 911 immediately. . Non-Emergent Contact Non-Emergency issues call your: Primary Care Provider . Past History Medical & Surgical History: (1) Blurred vision (2) Headache (3) TIA (transient ischemic attack) (4) H/O inguinal hernia repair (5) History of vasectomy . "Provider Documentation" section prepared by Mac Archer. . VTE Core Measure Inpt VTE Proph given/why not?: Enoxaparin (Lovenox)SQ <Electronically signed by Mac Archer M.D.> Additional Copies To Clarence Alvarez D.O.
== END 2016-12-31 19:19 | disposition home or self-care (01) ==
LOC: C.EDB 13:53 → C.2T 17:31 → ENRESERV 17:43
PROVIDERS: ADMIT Internal Medicine; ATTEND Internal Medicine
DX: H53.8 Other visual disturbances (principal); R07.89 Other chest pain; R51 Headache; Z82.49 Family history of ischemic heart disease and other diseases of the circulatory system; Z98.52 Vasectomy status; Z83.3 Family history of diabetes mellitus